=== PATIENT | male | born 1965 | race Two or more races ===

== ENCOUNTER 2020-12-05 15:28 | Emergency (ER) | payer BC, MEDICAID ==
[~2020-12-05] VITALS: Ht 170.2 cm; Wt 72.6 kg
--- NOTE | 2020-12-05 15:36 | NUR ---
URINE COLLECTED AND SENT TO LAB
--- NOTE | 2020-12-05 15:41 | NUR ---
PT C/O URINARY URGENCY AND DYSURIA AFTER DRINKING FLUIDS X 2 MONTHS. REPORTS HAVING THE URGE TO URINATE 2 MINS AFTER DRINKING. REPORTS BROWN URINE, AND SPOTTED BLOOD ONCE. ADMITS POLYDIPSIA AND POLYPHAGIA. ALSO REPORTS DIZZINESS WHEN STANDING. DENIES HX OF DIABETES.
[2020-12-05 16:09] LABS: BASOPHILS # (AUTO) 0.1 K/uL (0.0-0.2); BASOPHILS % (AUTO) 0.9 % (0.0-2.0); EOSINOPHILS % (AUTO) 1.5 % (0.0-6.0); HEMATOCRIT 38 % (39-51); HEMOGLOBIN 13.1 g/dL (13.5-17.5); LYMPHOCYTES # (AUTO) 1.6 K/uL (0.8-4.8); LYMPHOCYTES % (AUTO) 15.4 % (20.0-44.0); MEAN CORPUSCULAR HGB CONC 35 g/dl (31.0-36.0); MEAN CORPUSCULAR VOLUME 93 fL (80-96); MONOCYTES # (AUTO) 0.9 K/uL (0.1-1.30); NEUTROPHILS # (AUTO) 7.7 K/uL (1.8-8.9); NEUTROPHILS % (AUTO) 73.2 % (43.0-81.0); PLATELET COUNT (AUTO) 360 K/uL (150-450); RED BLOOD CELL COUNT(AUTO) 4.05 MIL/uL (4.5-6.0); WHITE BLOOD COUNT (AUTO) 10.5 K/uL (4.3-11.0)
[2020-12-05 16:24] LABS: CALCIUM, SERUM 8.7 mg/dL (8.5-10.1); CREATININE 0.7 mg/dL (0.6-1.3); POTASSIUM 3.8 mmol/L (3.5-5.1)
[2020-12-05 16:35] LABS: ALBUMIN 3.6 g/dL (3.4-5.0); BILIRUBIN,DIRECT 0.1 mg/dL (0.0-0.2); BILIRUBIN,TOTAL 0.3 mg/dL (0.2-1.0); TOTAL PROTEIN, SERUM 7.8 g/dL (6.4-8.2)
[2020-12-05 16:53] LABS: BILIRUBIN,URINE NEGATIVE (NEGATIVE); COLOR,URINE YELLOW (YELLOW); LEUKOCYTE ESTERASE ,URINE NEGATIVE (NEGATIVE); NITRITE, URINE NEGATIVE (NEGATIVE); PROTEIN,URINE NEGATIVE (NEGATIVE); UGLUCOSE NEGATIVE (NEGATIVE); UROBILINOGEN,URINE 0.2 EU/dL (0.2)
[2020-12-05 17:04] LABS: BACTERIA,URINE Few /HPF (None Seen); RBC,URINE 21-50 /HPF (0-2); SQUAMOUS EPITHELIAL CELL,UR Few /HPF (None Seen); WBC,URINE 0-2 /HPF (0-3)
--- NOTE | 2020-12-05 17:29 | NUR ---
PT ON HIS WAY TO CT
[2020-12-05 18:35] VITALS: BP 110/87
--- NOTE | 2020-12-05 18:35 | NUR ---
Patient discharged to home in stable condition. Written and verbal after care instructions given. Patient verbalizes understanding of instruction.
== END 2020-12-05 18:35 | disposition home or self-care (01) ==
LOC: ER 15:30
DX: R35.0 Frequency of micturition (principal); R31.9 Hematuria, unspecified; I10 Essential (primary) hypertension; Z60.2 Problems related to living alone
CPT/HCPCS: 36415; 80048-TC; 80076-TC; 81001; 82550-TC; 83690-TC; 85025-TC

== ENCOUNTER 2021-01-20 09:53 | Emergency (ER) | payer BC, OTHER ==
[~2021-01-20] VITALS: Ht 170.2 cm; Wt 72.6 kg
[2021-01-20 10:13] VITALS: BP 145/89
--- NOTE | 2021-01-20 10:15 | NUR ---
BIBS FOR PAIN IN HEAD 10 AND R SHOULDER 510, SLIP/FALL 0800 THIS AM. WILL CONTINUE TO MONITOR THE PATIENT.
[2021-01-20] MEDS ORDERED: NAPR-1009 PO (11:02)
--- NOTE | 2021-01-20 11:32 | NUR ---
Patient discharged to home in stable condition. Written and verbal after care instructions given. Patient verbalizes understanding of instruction.
== END 2021-01-20 11:32 | disposition home or self-care (01) ==
LOC: ER 09:58
DX: S46.011A Strain of muscle(s) and tendon(s) of the rotator cuff of right shoulder, initial encounter (principal); I10 Essential (primary) hypertension; Z60.2 Problems related to living alone; W01.0XXA Fall on same level from slipping, tripping and stumbling without subsequent striking against object, initial encounter; Y93.89 Activity, other specified; Y92.89 Other specified places as the place of occurrence of the external cause; Y99.8 Other external cause status
CPT/HCPCS: 73030-TC

== ENCOUNTER 2023-04-14 15:42 | Emergency (ER) | payer BC, MEDICARE, OTHER ==
[~2023-04-14 15:42] MED LIST: NAPR-1009 PO
[2023-04-14] MEDS ORDERED: HYDR12.55 PO (20:39)
== END 2023-04-14 16:14 | disposition left against medical advice (07) ==
LOC: ER 15:51
DX: F29 Unspecified psychosis not due to a substance or known physiological condition (principal); Z53.21 Procedure and treatment not carried out due to patient leaving prior to being seen by health care provider

== ENCOUNTER 2023-04-14 16:52 | Emergency (ER) | payer BC ==
[~2023-04-14] VITALS: Ht 167.6 cm; Wt 86.2 kg
[2023-04-14 17:08] VITALS: TEMP 98
[2023-04-14 18:10] LABS: BASOPHILS # (AUTO) 0.1 K/uL (0.0-0.2); BASOPHILS % (AUTO) 1.1 % (0.0-2.0); EOSINOPHILS % (AUTO) 0.4 % (0.0-6.0); HEMATOCRIT 41 % (39-51); HEMOGLOBIN 14.5 g/dL (13.5-17.5); LYMPHOCYTES # (AUTO) 1.7 K/uL (0.8-4.8); LYMPHOCYTES % (AUTO) 21.7 % (20.0-44.0); MEAN CORPUSCULAR HEMOGLOBIN 32 PG (26.0-33.0); MEAN CORPUSCULAR HGB CONC 36 g/dl (31.0-36.0); MEAN CORPUSCULAR VOLUME 90 fL (80-96); MONOCYTES # (AUTO) 0.6 K/uL (0.1-1.30); MONOCYTES % (AUTO) 8.4 % (2.0-12.0); NEUTROPHILS # (AUTO) 5.3 K/uL (1.8-8.9); NEUTROPHILS % (AUTO) 68.4 % (43.0-81.0); PLATELET COUNT (AUTO) 390 K/uL (150-450); RED BLOOD CELL COUNT(AUTO) 4.56 MIL/uL (4.5-6.0); RED CELL DISTRIBUTION WIDTH 12.6 % (11.5-15.0); WHITE BLOOD COUNT (AUTO) 7.7 K/uL (4.3-11.0)
[2023-04-14 18:12] LABS: APPEARANCE,URINE Clear (CLEAR); BILIRUBIN,URINE Negative (NEGATIVE); BLOOD, URINE Moderate Ery/uL (NEGATIVE); COLOR,URINE LIGHT YELLOW (YELLOW); KETONES,URINE Negative (NEGATIVE); LEUKOCYTE ESTERASE ,URINE Negative (NEGATIVE); NITRITE, URINE Negative (NEGATIVE); PH,URINE 5.5 (5.0-8.0); PROTEIN,URINE Negative (NEGATIVE); UGLUCOSE Negative (NEGATIVE); UROBILINOGEN,URINE 0.2 EU/dL (0.2)
[2023-04-14 18:15] LABS: CALCIUM, SERUM 9.1 mg/dL (8.5-10.1); CREATININE 0.8 mg/dL (0.6-1.3); POTASSIUM 3.6 mmol/L (3.5-5.1)
[2023-04-14 18:21] LABS: ALBUMIN 3.9 g/dL (3.4-5.0); BILIRUBIN,DIRECT 0.2 mg/dL (0.0-0.2); BILIRUBIN,TOTAL 0.5 mg/dL (0.2-1.0); TOTAL PROTEIN, SERUM 8.3 g/dL (6.4-8.2)
[2023-04-14 18:22] LABS: SALICYLATE 0.9 mg/dL (2.8-20.0)
[2023-04-14 18:42] LABS: ADD URINE CULTURE YES; BACTERIA,URINE Rare /HPF (None Seen); SQUAMOUS EPITHELIAL CELL,UR Rare /HPF (None Seen)
[2023-04-14] MEDS ORDERED: HYDROCHLOROTHIAZIDE 25 MG TABLET ONE (18:58)
[2023-04-14] MEDS ORDERED: ACETAMINOPHEN ES 500 MG TABLET ONE (18:58)
[2023-04-14 18:59] LABS: BARBITURATE, URINE NEGATIVE (NEGATIVE); BENZODIAZEPINE, URINE NEGATIVE (NEGATIVE); CANNABINOID, URINE NEGATIVE (NEGATIVE); COCCAINE, URINE NEGATIVE (NEGATIVE); OPIATE, URINE NEGATIVE (NEGATIVE); PHENCYCLIDINE SCREEN,URINE NEGATIVE (NEGATIVE)
[2023-04-14 19:00] LABS: AMPHETAMINE, URINE POSITIVE (NEGATIVE)
[2023-04-14] MEDS: HYDROCHLOROTHIAZIDE 25 MG TABLET PO ONE (19:01)
[2023-04-14] MEDS: ACETAMINOPHEN ES 500 MG TABLET PO ONE (19:01)
[2023-04-14 20:19] VITALS: BP 154/98; O2SAT 100
[2023-04-14] MEDS ORDERED: HYDR12.55 PO (20:39)
[2023-04-14] MEDS: SODIUM CHLORIDE 1000 MG TABLET PO ONE (21:43)
[2023-04-14] MEDS: SODIUM CHLORIDE 1000 MG TABLET ONE (21:52)
== END 2023-04-14 22:50 ==
LOC: ER 16:54
DX: I10 Essential (primary) hypertension (principal); Z20.822 Contact with and (suspected) exposure to COVID-19; Z79.899 Other long term (current) drug therapy; Z60.2 Problems related to living alone
CPT/HCPCS: 36415; 80048-TC; 80076-TC; 81001; 85025-TC; 87086-TC; G0480